=== PATIENT | female | born 1980 | race Caucasian/White ===

== ENCOUNTER → 2017-07-30 | Outpatient (CLI) | payer OTHER | LOC: FIMAGING 14:23 | PROVIDERS: ATTEND Advanced Practice Midwife | DX: Z36.89 Encounter for other specified antenatal screening (principal); O09.521 Supervision of elderly multigravida, first trimester; Z3A.12 12 weeks gestation of pregnancy ==

== ENCOUNTER → 2017-09-18 | Outpatient (CLI) | payer OTHER | LOC: FIMAGING 11:44 | PROVIDERS: ATTEND Advanced Practice Midwife | DX: O09.522 Supervision of elderly multigravida, second trimester (principal); Z31.9 Encounter for procreative management, unspecified ==

== ENCOUNTER → 2018-01-04 | Outpatient (CLI) | payer OTHER | LOC: FIMAGING 17:04 | PROVIDERS: ATTEND Obstetrics & Gynecology | DX: R22.43 Localized swelling, mass and lump, lower limb, bilateral (principal) ==

== ENCOUNTER 2018-02-08 06:40 | Inpatient (IN) | payer OTHER ==
[2018-02-08] MEDS ORDERED: OXYTOCIN/RINGERS LACTATE 1,000 ML IV PRN (06:53)
[2018-02-08] MEDS ORDERED: EPSOM SALT 454 GM TP PRN (06:53)
[2018-02-08] MEDS ORDERED: TERBUTALINE SULFATE 1 MG/ML VIAL IV PRN (06:53)
[2018-02-08] MEDS ORDERED: LR 1,000 ML IV PRN (06:53)
[2018-02-08] MEDS ORDERED: OLIVE OIL 118 ML BTL MISC PRN (06:53)
[2018-02-08] MEDS ORDERED: MISOPROSTOL 200 MCG TAB PO PRN (06:53)
[2018-02-08] MEDS ORDERED: AMMONIA AROMATIC 1 EACH AMP IH PRN (06:53)
[2018-02-08] MEDS ORDERED: IBUPROFEN 600 MG TAB PO PRN (06:53)
[2018-02-08] MEDS ORDERED: LIDOCAINE 1% 300 MG/30 ML SDV SC PRN (06:53)
[2018-02-08 08:05] LABS: PLATELET COUNT 192 10^3/uL (150-400)
[2018-02-08] MEDS ORDERED: OXYTOCIN/RINGERS LACTATE 500 ML IV SCH (09:00)
[2018-02-08] MEDS ORDERED: AMMONIA AROMATIC 1 EACH AMP IH ONE (10:13)
[2018-02-08] MEDS ORDERED: OLIVE OIL 118 ML BTL ONE (10:13)
[2018-02-08] MEDS ORDERED: LIDOCAINE 1% 300 MG/30 ML SDV ONE (10:13)
[2018-02-08] MEDS ORDERED: MISOPROSTOL 200 MCG TAB ONE (10:13)
--- NOTE | 2018-02-08 11:31 | GHP ---
[f rep st] PREOP HISTORY AND PHYSICAL DATE OF ADMISSION: 02/08/2018 ADMISSION DIAGNOSIS: Intrauterine at 40 and 2/7 weeks gestation, here for elective inducti on of labor. HISTORY OF PRESENT ILLNESS: The patient is a 38-year-old, 2, para 1-0-0-1, who is 40 and 2/7 weeks gestation dated by last menstrual period of 05/01/2017, consistent with a 1st trimester screen . Patient's has been overall uncomplicated. She had negative genetic testing including ne gative verify and a normal 1st trimester ultrasound. The patient did have a complaint of a bulging v aricosity in her vagina in the middle of the but felt that this should not interfere with h aving a successful vaginal delivery. PAST MEDICAL HISTORY: History of cervical dysplasia, history of anxiety and depression. MEDICATIONS: vitamins and iron. SURGICAL HISTORY: [place] tooth extraction. ALLERGIES: No known drug allergies. SOCIAL HISTORY: Patient is . She denies tobacco, alcohol, or drug use. FAMILY MEDICAL HISTORY: Noncontributory. [employer] HISTORY: Menarche age 13. Periods every 28 days lasting 3-4 days. She is a 2, para 1-0-0-1. In 06/2015 she had a spontaneous vaginal delivery at 41 weeks' gestation of an 8 pound male . She had a second-degree laceration. Current is uncomplicated. The patient does have a history of abnormal Pap smears and has had cryosurgery x2. Last abnormal Pap was in 2007. Re peat Paps have all been negative. The patient does have a history of HPV but denies any history of a ny other sexually transmitted diseases. REVIEW OF SYSTEMS: 10-point review of systems is negative. She has positive movement. No los s of fluid. No vaginal bleeding. She denies any headaches or changes in vision. PHYSICAL EXAMINATION: VITAL SIGNS: Stable. GENERAL APPEARANCE: Alert and oriented x3. PSYCH: Ap propriate affect. NECK: Mobile and supple. HEART: Rate is regular. LUNGS: Clear to auscultation bilaterally. ABDOMEN: Gravid, nondistended, nontender. EXTREMITIES: Reveal no calf tenderness or edema. CERVICAL: Last exam in the office was 4 cm dilated, 80% effaced, and -2 station. is in the vertex presentation. heart tracings are category 1. LABORATORY DATA: The patient's labs: Blood type O positive. Antibody screen negative. Ru elisa immune. GBS negative. HBsAg negative. HIV negative. Her 50 g glucose was 106. ASSESSMENT AND PLAN: A 38-year-old 2, para 1-0-0-1 who is 40 and 2/7 weeks' gestation, here for elective induction of labor. She has been started on Pitocin and will have membranes artificiall y ruptured. Once she becomes in a better contraction pattern patient will request an epidural. /[id number]/MODL
[2018-02-08] MEDS ORDERED: ONDANSETRON 4 MG/2 ML VIAL IVP PRN (12:10)
[2018-02-08] MEDS ORDERED: NALOXONE HCL 0.4 MG/ML INJ IVP PRN (12:10)
[2018-02-08] MEDS ORDERED: PHENYLEPHRINE HCL 100 MCG/ML SYR IVP PRN (12:10)
[2018-02-08] MEDS ORDERED: BUPIVACAINE 0.25% 30 ML SDV ONE (12:17)
[2018-02-08] MEDS ORDERED: PHENYLEPHRINE HCL 100 MCG/ML SYR ONE (12:17)
[2018-02-08] MEDS ORDERED: fentaNYL 100 MCG/2 ML INJ ONE (12:18)
[2018-02-08] MEDS ORDERED: LR 500 ML IV SCH (12:30)
[2018-02-08] MEDS ORDERED: fentaNYL 2MCG/ML/BUP 0.1% RTU 100 ML EP SCH (12:30)
[2018-02-08] MEDS ORDERED: fentaNYL 200 MCG, BUPIVACAINE 0.5% 20 ML in NS 100 ML EP SCH (13:00)
--- NOTE | 2018-02-08 13:00 | OBPROG ---
Labor Progress Note Assessment/Plan: Assessment: Plan: Subjective/Intrapartum Course: 02/08/18 12:57 patient comfortable with epidural. SVE 5/80/-2. AROM - large amount of clear fluid noted. pitocin running. status is reassuring. Objective: 02/08/18 07:40 Patient ABO/Rh O POSITIVE 02/08/18 07:40 - SVE Dilation (cm): 5 Effacement (%): 80 Station: -1 Membranes: AROM Amniotic Fluid Color: Clear - Contraction Pattern Assessment Current Contraction Pattern: Regular - FHR Assessment Sullivan FHR Pattern Variability: Moderate FHR Category: 1 - Procedures Non-surgical Procedures: Amniotomy - AP Antepartum Course: 02/08/18 12:59 initiated care at [facility] at 12 weeks. negative genetic testing. vaginal varicosity. elective induction at 40 2/7 Oxytocin Orders Assessment - Pre-Induction/Augmentation Assessment Gestational Age: 40 week(s) and 2 day(s) ICD10 Worksheet Patient Problems: Problems Problem Status Onset (spontaneous vaginal delivery) Acute
--- NOTE | 2018-02-08 13:10 | PDANEPAE ---
ANE History of Present Illness tiup, induction of labor ANE Past Medical History Past Medical History: previous anesthesia for labor epidural and dental work without anesthesia problems, some anxiety issues, otherwise neg - Pulmonary History Hx Sleep Apnea: No - Chronic Pain History Chronic Pain: No ANE Review of Systems Review of systems is: negative Review of Systems: ANE Patient History - Allergies Allergies/Adverse Reactions: No Known Allergies Allergy (Unverified 10/12/13 13:31) - Home Medications Home Medications: Vit27&Calcium/Iron/FA [] 1 tab PO DAILY 06/22/15 [Last Taken Unknown] Iron 1 tab PO BID 02/08/18 [Last Taken Unknown] - Anes Hx Anes Hx: no prior problems - Smoking Hx Smoking Status: Former smoker - Family Anes Hx Family Anes Hx: neg - N/A ANE Labs/Vital Signs - Labs Result Diagrams: 02/08/18 07:40 - Vital Signs Height: 165.1 cm Weight: 69.853 kg ANE Physical Exam - Airway Neck exam: FROM Mallampati Score: Class 2 Mouth exam: normal dental/mouth exam - Pulmonary Pulmonary: no respiratory distress - Cardiovascular Cardiovascular: regular rate and rhythym - ASA Status ASA Status: II ANE Anesthesia Plan Anesthesia Plan: epidural Urgent/Emergent Case: Anes brittany completed preop but documented later for safe timely pt care
--- NOTE | 2018-02-08 13:11 | POSTANESTH ---
Post Anesthetic Evaluation Cardiovascular Status: Normal, Stable Respiratory Status: Normal, Stable Level of Consciousness/Mental Status: Can Participate in Eval Pain Control: Adequate, Prn Tx Ordered Nausea/Vomiting Control: Adequate, Prn Tx Ordered Complications Possibly Related to Anesthesia: None Noted (uneventful placement of epidural, comfortable, kerry well, VS stable, motor intact)
--- NOTE | 2018-02-08 16:24 | POSTANESTH ---
Post Anesthetic Evaluation Cardiovascular Status: Normal, Stable Respiratory Status: Normal, Stable Level of Consciousness/Mental Status: Can Participate in Eval Pain Control: Adequate, Prn Tx Ordered Nausea/Vomiting Control: Adequate, Prn Tx Ordered Complications Possibly Related to Anesthesia: None Noted (uneventful resolution of epidural)
--- NOTE | 2018-02-08 16:58 | OBDEL ---
Info Type: Vaginal L&D Analgesia/Anesthesia Type: Epidural GBS+: No Intrapartum Medications: Generic Name Dose Route Start Last Admin Trade Name Freq PRN Reason Stop Dose Admin Lactated Ringer's 1,000 mls @ 0 mls/hr 02/08/18 06:53 02/08/18 09:23 Lr IV 02/09/18 06:52 1,000 mls PRN PRN Administration SEE PROTOCOL CONDITIONS Protocol Per Protocol Oxytocin/Lactated Ringer's 500 mls @ 2 mls/hr 02/08/18 09:00 02/08/18 09:24 Pitocin 30 Units/Lr (Premix) IV 08/07/18 08:59 500 mls CONT ANNA Administration Discontinued Medications Generic Name Dose Route Start Last Admin Trade Name Freq PRN Reason Stop Dose Admin Ibuprofen 600 mg 02/08/18 06:53 02/08/18 15:39 Motrin PO 600 mg ONCE PRN Administration post , pain - Hospital Course Intrapartum: 02/08/18 12:57 patient comfortable with epidural. SVE 5/80/-2. AROM - large amount of clear fluid noted. pitocin running. status is reassuring. Indications for Delivery: Elective Vaginal Delivery - Delivery Provider Delivery Physician/CNM: Edel Mancuso - Labor and Delivery Onset of Contractions Date: 02/08/18 Onset of Contractions Time: 10:15 Onset of Contractions Type: Induced Rupture of Membranes Date: 02/08/18 Rupture of Membranes Time: 12:53 Rupture of Membranes Type: Artificial Amniotic Fluid Color: Clear Dilation Complete Date: 02/08/18 Dilation Complete Time: 14:04 Placenta Delivery Date: 02/08/18 Placenta Delivery Time: 14:32 Total Hours of Labor: 4 Non-surgical Procedures: Amniotomy Vaginal Sponge Count Correct: Yes Vaginal Needle Count Correct: Yes EBL: 200 Delivery Events: None - Medications Labor Augmentation/Induction Methods Used: Pitocin Labor Augmentation/Induction Indication: Elective Data BAILEY: 02/06/18 Gestational Age: 40 week(s) and 2 day(s) Sullivan Delivery Date: 02/08/18 Delivery Time: 14:27 Sex of : Female Weight (gm): 3974 g Score (1 Min): 8 Score (5 Min): 9 ICD10 Worksheet Patient Problems: Problems Problem Status Onset Normal labor Acute (spontaneous vaginal delivery) Acute
[2018-02-08] MEDS ORDERED: HYDROCORTISONE 0.5% CREAM TP PRN (16:59)
[2018-02-08] MEDS ORDERED: SIMETHICONE 80 MG TAB CHEW PO PRN (16:59)
[2018-02-08] MEDS ORDERED: HYDROCODONE/APAP 5/325 TAB PO PRN (16:59)
[2018-02-08] MEDS: DOCUSATE SODIUM 100 MG CAP PO PRN (20:41)
[2018-02-08] MEDS: IBUPROFEN 600 MG TAB PO PRN (20:41)
[2018-02-09] MEDS: IBUPROFEN 600 MG TAB PO PRN ×4 (02:20→21:08)
[2018-02-09] MEDS: DOCUSATE SODIUM 100 MG CAP PO PRN ×2 (08:22→19:51)
--- NOTE | 2018-02-09 13:43 | OBPP ---
Progress Note Assessment/Plan: Assessment: s/p PPD # 1 - pt is stable Plan: Continue routine pp care Plan for d/c home in am 6/10 02/09/18 13:41 Subjective/ Course: 02/09/18 13:42 Pt seen and examined. Doing well, some mild cramping-relief with Motrin. Mod lochia. She is OOB, kerry regular diet, voiding and passing flatus. BF not going so well, she "has holes in her nipples" and plans on pumping at home. She was thinking about going home today, but is unsure. Advised to stay another night. Objective: 02/08/18 07:40 Patient ABO/Rh O POSITIVE 02/08/18 07:40 Temp Pulse Resp BP Pulse Ox 36.6 C 73 14 93/50 L 94 02/08/18 19:52 02/08/18 19:52 02/08/18 19:52 02/08/18 19:52 02/08/18 19:52 Uterine Position/Fundal Height: Umbilicus -2 Uterine Tone: Firm Physical Exam - Physical Exam General Appearance: alert, no apparent distress, mild distress Respiratory: lungs clear, normal breath sounds Cardiac/Chest: regular rate, rhythm Abdomen: normal bowel sounds, non-tender, soft, flatus (+) Extremities: non-tender, normal inspection Skin: normal color, warm/dry Neuro/Psych: alert, normal mood/affect, oriented x 3
--- NOTE | 2018-02-09 13:46 | OBGCSDC ---
General Delivery Information - General Info : 2 Para: 2 Abortions: 0 Type: Vaginal L&D Analgesia/Anesthesia Type: Epidural Admission Date: 02/08/18 Labs: Patient ABO/Rh O POSITIVE 02/08/18 07:40 Hct 36.5 % (38.0-47.0) L 02/08/18 07:40 - Hospital Course Antepartum: 02/08/18 12:59 initiated care at [facility] at 12 weeks. negative genetic testing. vaginal varicosity. elective induction at 40 2/7 Intrapartum: 02/08/18 12:57 patient comfortable with epidural. SVE 580/-2. AROM - large amount of clear fluid noted. pitocin running. status is reassuring. : 02/09/18 13:42 Pt seen and examined. Doing well, some mild cramping-relief with Motrin. Mod lochia. She is OOB, kerry regular diet, voiding and passing flatus. BF not going so well, she "has holes in her nipples" and plans on pumping at home. She was thinking about going home today, but is unsure. Advised to stay another night. Vaginal - Delivery Provider Delivery Physician/CNM: Edel Mancuso - Diagnosis Labor: Induced Rupture of Membranes Type: Artificial Amniotic Fluid Color: Clear Delivery Events: None - Procedures Non-surgical Procedures: Amniotomy - Delivery Non-surgical Procedures: Amniotomy EBL: 200 Data BAILEY: 02/06/18 Gestational Age: 40 week(s) and 3 day(s) Sullivan Delivery Date: 02/08/18 Delivery Time: 14:27 Sex of Infant: Female Minier Weight (gm): 3974 g Score (1 Min): 8 Score (5 Min): 9 Discharge Information - Discharge Information Prescriptions: Ibuprofen [Motrin (*)] 600 mg PO Q6HRS PRN #30 tab PRN Reason: Pain, Mild Instruction/Follow Up: Four Weeks, Six Weeks
[2018-02-09] MEDS: ACETAMINOPHEN 325 MG TAB PO PRN (19:51)
[2018-02-10] MEDS: ACETAMINOPHEN 325 MG TAB PO PRN (00:01)
[2018-02-10] MEDS: IBUPROFEN 600 MG TAB PO PRN ×2 (03:10→09:11)
[2018-02-10] MEDS: DOCUSATE SODIUM 100 MG CAP PO PRN (09:11)
[2018-02-10 09:34] VITALS: BP 108/73
--- NOTE | 2018-02-10 12:06 | OBPP ---
Progress Note Assessment/Plan: Assessment: Plan: Subjective/ Course: 02/09/18 13:42 Pt seen and examined. Doing well, some mild cramping-relief with Motrin. Mod lochia. She is OOB, kerry regular diet, voiding and passing flatus. BF not going so well, she "has holes in her nipples" and plans on pumping at home. She was thinking about going home today, but is unsure. Advised to stay another night. 02/10/18 12:04 ppd# 2 s doing great. anxious to get out of here as son is running everywhere. pain is well controlled. had significant cramps which are improving. normal lochia. denies headache and change in vision. breast feeding is going well. plans to breast feed and pump. ready to go home. mood stable. Objective: 02/08/18 07:40 Patient ABO/Rh O POSITIVE 02/08/18 07:40 Temp Pulse Resp BP Pulse Ox 37.1 C 91 16 108/73 96 02/10/18 08:00 02/10/18 08:00 02/10/18 08:00 02/10/18 08:00 02/09/18 21:00 Physical Exam - Physical Exam Neck: non-tender, full range of motion, supple Respiratory: chest non-tender, lungs clear, normal breath sounds Cardiac/Chest: normal peripheral pulses, regular rate, rhythm Abdomen: normal bowel sounds, non-tender, other (fundus firm and non tender) Extremities: normal range of motion, non-tender, normal inspection, normal capillary refill Skin: normal color, warm/dry Neuro/Psych: no motor/sensory deficits, alert, normal mood/affect, oriented x 3
--- NOTE | 2018-02-10 12:07 | OBGCSDC ---
General Delivery Information - General Info : 2 Para: 2 Abortions: 0 Type: Vaginal L&D Analgesia/Anesthesia Type: Epidural Admission Date: 02/08/18 Labs: Patient ABO/Rh O POSITIVE 02/08/18 07:40 Hct 36.5 % (38.0-47.0) L 02/08/18 07:40 - Hospital Course Antepartum: 02/08/18 12:59 initiated care at [facility] at 12 weeks. negative genetic testing. vaginal varicosity. elective induction at 40 2/7 Intrapartum: 02/08/18 12:57 patient comfortable with epidural. SVE 580/-2. AROM - large amount of clear fluid noted. pitocin running. status is reassuring. : 02/09/18 13:42 Pt seen and examined. Doing well, some mild cramping-relief with Motrin. Mod lochia. She is OOB, kerry regular diet, voiding and passing flatus. BF not going so well, she "has holes in her nipples" and plans on pumping at home. She was thinking about going home today, but is unsure. Advised to stay another night. 02/10/18 12:04 ppd# 2 s doing great. anxious to get out of here as son is running everywhere. pain is well controlled. had significant cramps which are improving. normal lochia. denies headache and change in vision. breast feeding is going well. plans to breast feed and pump. ready to go home. mood stable. Vaginal - Delivery Provider Delivery Physician/CNM: Edel Mancuso - Diagnosis Labor: Induced Rupture of Membranes Type: Artificial Amniotic Fluid Color: Clear Delivery Events: None - Procedures Non-surgical Procedures: Amniotomy - Delivery Non-surgical Procedures: Amniotomy EBL: 200 [place] Data BAILEY: 02/06/18 Gestational Age: 40 week(s) and 4 day(s) Sullivan Delivery Date: 02/08/18 Delivery Time: 14:27 Sex of Infant: Female Weight (gm): 3974 g Score (1 Min): 8 Score (5 Min): 9 Discharge Information - Discharge Information Prescriptions: Ibuprofen [Motrin (*)] 600 mg PO Q6HRS PRN #30 tab PRN Reason: Pain, Mild Condition: Good Instruction/Follow Up: Four Weeks, Six Weeks
== END 2018-02-10 12:30 | disposition home or self-care (01) | DRG 775 ==
LOC: FLD 06:40 → FOB 16:41
PROVIDERS: ADMIT Obstetrics & Gynecology; ATTEND Obstetrics & Gynecology
PROC: 3E033VJ Introduction of Other Hormone into Peripheral Vein, Percutaneous Approach (ICD-10-PCS; principal; 2018-02-08)
PROC: 10907ZC Drainage of Amniotic Fluid, Therapeutic from Products of Conception, Via Natural or Artificial Opening (ICD-10-PCS; principal; 2018-02-08)
PROC: 10E0XZZ Delivery of Products of Conception, External Approach (ICD-10-PCS; principal; 2018-02-08)
DX: O80 Encounter for full-term uncomplicated delivery (principal); Z87.410 Personal history of cervical dysplasia; Z3A.40 40 weeks gestation of pregnancy; Z37.0 Single live birth
CPT/HCPCS: J2370; J2590; J3010